=== PATIENT | female | born 1990 | race Caucasian/White ===

== ENCOUNTER 2016-04-18 16:24 | Emergency (ER) | payer MEDICAID ==
[~2016-04-18] VITALS: Ht 162.6 cm; Wt 99.8 kg
[2016-04-18 17:44] LABS: Urine Bilirubin Negative (Negative); Urine Blood Negative /uL (Negative); Urine Color Yellow (Yellow); Urine Glucose Normal (Normal); Urine Ketone Negative (Negative); Urine Mucus FEW (None Seen); Urine Nitrite Negative (Negative); Urine RBC 2 /hpf (0 - 4); Urine Squamous Epithelial Cell FEW /hpf (<5); Urine Urobilinogen Normal (Negative); Urine pH 5.5 (5.0-8.0)
[2016-04-18 17:47] LABS: INR 1.05 (0.9-1.15); Partial Thromboplastin Time 32.9 sec (22.64-33.71); Prothrombin Time 10.8 sec (9.37-12.3)
[2016-04-18 18:01] LABS: Albumin 3.8 g/dL (3.4-5.0); BUN/Creatinine Ratio 18.7; Bilirubin, Total 0.3 mg/dL (0.2-1.0); Calcium 9.1 mg/dL (8.5-10.1); Potassium 4.1 mmol/L (3.5-5.1)
[2016-04-18 18:38] LABS: Basophils # (auto) 0 uL; Basophils % (auto) 0.2 % (0.0-2.0); DEFINITIVE VIEW TRANSMISSION; Eosinophils # (auto) 0.1 uL; Eosinophils % (auto) 1.2 % (0.0-7.0); Hematocrit 42.5 % (36.0-46.0); Hemoglobin 13.3 g/dL (12.2-16.2); Lymphocytes # (auto) 2.3 uL; Lymphocytes % (auto) 18.8 % (10.0-50.0); Mean Corpuscular Hemoglobin 23.8 pg (28.0-32.0); Mean Corpuscular Hgb Conc. 31.4 g/dL (32.0-36.0); Mean Corpuscular Volume 75.8 fL (80.0-100.0); Mean Platelet Volume 8.6 fL (7.4-10.4); Monocytes # (auto) 0.8 uL; Monocytes % (auto) 6.6 % (0.0-12.0); Neutrophils # (auto) 8.8 uL; Neutrophils % (auto) 73.2 % (37.0-80.0); Platelet Count (auto) 419 10^3/uL (140-450); Red Cell Distribution Width 15.3 % (11.6-16.0)
[2016-04-18] MEDS: MECLIZINE HCL 25 MG TAB PO ONE (18:58)
[2016-04-18 20:29] VITALS: BP 122/56
[2016-04-18] MEDS: HYDROcodone-ACET 5/325MG TAB PO ONE (20:30)
[2016-04-18 20:43] LABS: Hypochromia Moderate; Platelet Estimate Adequate
== END 2016-04-18 20:41 | disposition home or self-care (01) ==
LOC: ER 16:26
DX: J00 Acute nasopharyngitis [common cold] (principal); R42 Dizziness and giddiness
CPT/HCPCS: 36415; 70450; 80053; 81001; 81025; 82962; 85025; 85610; 85730; 93005; 99285; J8597

== ENCOUNTER 2018-08-01 02:40 | Emergency (ER) | payer MEDICAID ==
[~2018-08-01] VITALS: Ht 162.6 cm; Wt 96.2 kg
[2018-08-01] MEDS ORDERED: MEPERIDINE HCL (50 MG/ML) 1 ML VIAL IM ONE (04:45)
[2018-08-01] MEDS ORDERED: ONDANSETRON ODT 4 MG TAB PO ONE (04:45)
[2018-08-01 05:05] VITALS: BP 121/80
== END 2018-08-01 06:14 | disposition home or self-care (01) ==
LOC: ER 02:45
DX: S82.891D Other fracture of right lower leg, subsequent encounter for closed fracture with routine healing (principal); V49.9XXD Car occupant (driver) (passenger) injured in unspecified traffic accident, subsequent encounter
CPT/HCPCS: 73610; 96372; 99283; J2175; Q0162